=== PATIENT | female | born 1960 | race Caucasian/White ===

== ENCOUNTER 2019-02-03 17:23 | Observation (INO) ==
[2019-02-03] MEDS ORDERED: MORPHINE 4 MG/1 ML VIAL IV STA ×2 (18:24→20:18)
[2019-02-03] MEDS ORDERED: NITROGLYCERIN SL 0.4 MG TABLET SL PRN (18:24)
[2019-02-03] MEDS ORDERED: ONDANSETRON 4 MG/2 ML VIAL IV STA (18:24)
[2019-02-03] MEDS ORDERED: ASPIRIN 325 MG TABLET PO STA (18:24)
[2019-02-03 19:12] LABS: Basophils # 0.1 10*3/uL (0.0-0.2); Basophils % 0.5 % (0.0-0.8); Eosinophils # 0.1 10*3/uL (0.0-0.87); Eosinophils % 1.3 % (0.00-10.9); Hematocrit 42.8 VOL% (35.7-47.0); Hemoglobin 14.1 GM/DL (12.0-16.0); Immature Granulocytes % 0.5 %; Immature Granulocytes Absolute 0.05 #; Lymphocytes # 1.9 10*3/uL (1.4-4.0); Lymphocytes % 20.4 % (21.3-54.2); Mean Corpuscular HGB Conc 32.9 GM/DL (32-36); Mean Corpuscular Volume 89.4 FL (87-102); Mean Platelet Volume 10.8 FL (9.6-12.0); Monocytes % 4.9 % (1.7-12.7); Neutrophils % 72.4 % (38.7-73.9); Platelet Count 215 T/CUMM (130-400); Red Blood Count 4.79 MC/CUMM (3.8-5.5); Red Cell Distribution Width 13.9 % (9.3-17.3); White Blood Count 9.5 T/CUMM (4-12)
[2019-02-03 19:21] LABS: PT Patient Result 10.5 SECS
[2019-02-03 19:33] LABS: Alanine Aminotransferase 21 U/L (13-56); Albumin 3.9 G/DL (3.4-5.0); Alkaline Phosphatase 100 U/L (45-117); Aspartate Amino Transferase 15 U/L (0-37); Bilirubin,Total < 0.39 MG/DL (0.2-1.0); Blood Urea Nitrogen 5 MG/DL (7-18); Glucose 94 MG/DL (74-106); Osmolality,Calculated 271.7 MOS/KG (273-304); Total Protein 7.5 G/DL (6.4-8.3)
[2019-02-03] MEDS ORDERED: DOCUSATE SODIUM 100 MG CAPSULE PO PRN (21:12)
[2019-02-03] MEDS: ACETAMINOPHEN 325 MG TABLET PO PRN (22:55)
[2019-02-03] MEDS: MORPHINE ER 15 MG TABLET PO SCH (22:55)
[2019-02-03] MEDS: ZALEPLON 5 MG CAPSULE PO SCH (22:55)
[2019-02-03] MEDS: ROSUVASTATIN 20 MG TABLET PO SCH (22:55)
[2019-02-03] MEDS: TOPIRAMATE 25 MG TABLET PO SCH (22:56)
[2019-02-03] MEDS: SERTRALINE 100 MG TABLET PO SCH (22:56)
[2019-02-03] MEDS: ENOXAPARIN 40 MG/0.4 ML SYRINGE SUBCUT SCH (22:56)
[2019-02-03] MEDS: oxyCODONE/ACETAMINOPHEN 5-325 MG TABLET PO PRN (23:05)
[2019-02-03] MEDS: ONDANSETRON 4 MG/2 ML VIAL IV PRN (23:05)
[2019-02-03] MEDS: SUMAtriptan 25 MG TABLET PO PRN (23:50)
[2019-02-04 01:56] LABS: Basophils # 0.1 10*3/uL (0.0-0.2); Basophils % 0.6 % (0.0-0.8); Eosinophils # 0.2 10*3/uL (0.0-0.87); Eosinophils % 2.1 % (0.00-10.9); Hemoglobin 13.6 GM/DL (12.0-16.0); Immature Granulocytes % 0.4 %; Immature Granulocytes Absolute 0.03 #; Lymphocytes # 2.5 10*3/uL (1.4-4.0); Lymphocytes % 31.5 % (21.3-54.2); Mean Corpuscular HGB Conc 33.2 GM/DL (32-36); Mean Corpuscular Volume 88.9 FL (87-102); Mean Platelet Volume 11.2 FL (9.6-12.0); Monocytes % 4.9 % (1.7-12.7); Neutrophils % 60.5 % (38.7-73.9); Platelet Count 207 T/CUMM (130-400); Red Blood Count 4.61 MC/CUMM (3.8-5.5); Red Cell Distribution Width 13.9 % (9.3-17.3)
[2019-02-04 03:41] LABS: Calcium 8.9 MG/DL (8.5-10.1); Osmolality,Calculated 271.8 MOS/KG (273-304); Risk Ratio 7.82; Thyroid Stimulating Hormone 5.62 uIU/ml (0.358-3.74); VLDL CHOLESTEROL 62.6 MG/DL
[2019-02-04] MEDS: SUMAtriptan 25 MG TABLET PO PRN (04:20)
[2019-02-04] MEDS: ACETAMINOPHEN 325 MG TABLET PO PRN (04:20)
[2019-02-04] MEDS: oxyCODONE/ACETAMINOPHEN 5-325 MG TABLET PO PRN ×3 (04:20→19:33)
[2019-02-04] MEDS: SERTRALINE 100 MG TABLET PO SCH ×2 (09:11→20:55)
[2019-02-04] MEDS: LOSARTAN 50 MG TABLET PO SCH (09:11)
[2019-02-04] MEDS: BACLOFEN 10 MG TABLET PO SCH (09:11)
[2019-02-04] MEDS: PANTOPRAZOLE 40 MG TABLET PO SCH (09:11)
[2019-02-04] MEDS: FENOFIBRATE 145 MG TABLET PO SCH (09:12)
[2019-02-04] MEDS: TOPIRAMATE 25 MG TABLET PO SCH ×2 (09:16→20:55)
[2019-02-04] MEDS: busPIRone 15 MG TABLET PO SCH ×4 (09:17→21:04)
[2019-02-04] MEDS: ONDANSETRON 4 MG/2 ML VIAL IV PRN ×2 (12:22→19:32)
[2019-02-04] MEDS: MORPHINE ER 15 MG TABLET PO SCH (20:55)
[2019-02-04] MEDS: ROSUVASTATIN 20 MG TABLET PO SCH (20:55)
[2019-02-04] MEDS: ENOXAPARIN 40 MG/0.4 ML SYRINGE SUBCUT SCH (20:55)
[2019-02-04] MEDS: ZALEPLON 5 MG CAPSULE PO SCH (20:55)
[2019-02-05] MEDS: ONDANSETRON 4 MG/2 ML VIAL IV PRN ×4 (00:15→20:22)
[2019-02-05] MEDS ORDERED: REGADENOSON 0.4 MG/5 ML SYRINGE IV ONE (08:25)
[2019-02-05] MEDS: busPIRone 15 MG TABLET PO SCH ×4 (10:47→20:25)
[2019-02-05] MEDS: FENOFIBRATE 145 MG TABLET PO SCH (10:47)
[2019-02-05] MEDS: SERTRALINE 100 MG TABLET PO SCH ×2 (10:47→20:22)
[2019-02-05] MEDS: TOPIRAMATE 25 MG TABLET PO SCH ×2 (10:47→20:23)
[2019-02-05] MEDS: LOSARTAN 50 MG TABLET PO SCH (10:48)
[2019-02-05] MEDS: BACLOFEN 10 MG TABLET PO SCH (10:48)
[2019-02-05] MEDS: PANTOPRAZOLE 40 MG TABLET PO SCH (10:48)
[2019-02-05] MEDS: hydroCHLOROthiazide 12.5 MG CAPSULE PO SCH (10:48)
[2019-02-05] MEDS: oxyCODONE/ACETAMINOPHEN 5-325 MG TABLET PO PRN (17:52)
[2019-02-05] MEDS: ZALEPLON 5 MG CAPSULE PO SCH (20:22)
[2019-02-05] MEDS: MORPHINE ER 15 MG TABLET PO SCH (20:22)
[2019-02-05] MEDS: ENOXAPARIN 40 MG/0.4 ML SYRINGE SUBCUT SCH (20:22)
[2019-02-05] MEDS: ROSUVASTATIN 20 MG TABLET PO SCH (20:23)
[2019-02-06] MEDS: ONDANSETRON 4 MG/2 ML VIAL IV PRN ×4 (00:05→19:33)
[2019-02-06] MEDS: busPIRone 15 MG TABLET PO SCH ×4 (09:37→21:26)
[2019-02-06] MEDS ORDERED: PROMETHAZINE 25 MG/1 ML VIAL IM PRN (11:01)
[2019-02-06] MEDS: TOPIRAMATE 25 MG TABLET PO SCH ×2 (12:58→21:26)
[2019-02-06] MEDS: FENOFIBRATE 145 MG TABLET PO SCH (12:58)
[2019-02-06] MEDS: amLODIPine 5 MG TABLET PO SCH (12:58)
[2019-02-06] MEDS: LOSARTAN 50 MG TABLET PO SCH (12:59)
[2019-02-06] MEDS: SERTRALINE 100 MG TABLET PO SCH ×2 (12:59→21:30)
[2019-02-06] MEDS: PANTOPRAZOLE 40 MG TABLET PO SCH (12:59)
[2019-02-06] MEDS: BACLOFEN 10 MG TABLET PO SCH (12:59)
[2019-02-06] MEDS: ROSUVASTATIN 20 MG TABLET PO SCH (21:26)
[2019-02-06] MEDS: MORPHINE ER 15 MG TABLET PO SCH (21:26)
[2019-02-06] MEDS: ZALEPLON 5 MG CAPSULE PO SCH (21:26)
[2019-02-06] MEDS: PREGABALIN 100 MG CAPSULE PO SCH (22:53)
[2019-02-07] MEDS: ONDANSETRON 4 MG/2 ML VIAL IV PRN ×2 (04:25→08:14)
[2019-02-07 05:59] LABS: Basophils % 0.3 % (0.0-0.8); Eosinophils # 0.2 10*3/uL (0.0-0.87); Eosinophils % 2.4 % (0.00-10.9); Hematocrit 36.3 VOL% (35.7-47.0); Hemoglobin 11.7 GM/DL (12.0-16.0); Immature Granulocytes % 0.5 %; Immature Granulocytes Absolute 0.03 #; Lymphocytes # 2.2 10*3/uL (1.4-4.0); Lymphocytes % 33.3 % (21.3-54.2); Mean Corpuscular HGB Conc 32.2 GM/DL (32-36); Mean Corpuscular Volume 91.7 FL (87-102); Monocytes % 6.7 % (1.7-12.7); Neutrophils % 56.8 % (38.7-73.9); Platelet Count 167 T/CUMM (130-400); Red Blood Count 3.96 MC/CUMM (3.8-5.5); White Blood Count 6.5 T/CUMM (4-12)
[2019-02-07 06:20] LABS: Calcium 8.5 MG/DL (8.5-10.1); Osmolality,Calculated 275.8 MOS/KG (273-304)
[2019-02-07] MEDS ORDERED: LACTATED RINGERS 500 ML IV SCH (08:00)
[2019-02-07] MEDS ORDERED: PHENYLEPHRINE 1 MG/10 ML SYRINGE IV ONE (09:30)
[2019-02-07] MEDS ORDERED: LIDOCAINE 100 MG/5 ML SYRINGE ONE (09:30)
[2019-02-07] MEDS ORDERED: PROPOFOL 200 MG/20 ML VIAL IV ONE (09:30)
[2019-02-07] MEDS ORDERED: fentaNYL 100 MCG/2 ML VIAL ONE (12:36)
[2019-02-07] MEDS: busPIRone 15 MG TABLET PO SCH ×2 (14:37→16:43)
[2019-02-07] MEDS: LOSARTAN 50 MG TABLET PO SCH (14:38)
[2019-02-07] MEDS: hydroCHLOROthiazide 12.5 MG CAPSULE PO SCH (14:38)
[2019-02-07] MEDS: BACLOFEN 10 MG TABLET PO SCH (14:38)
[2019-02-07] MEDS: PREGABALIN 100 MG CAPSULE PO SCH (14:39)
[2019-02-07] MEDS: PANTOPRAZOLE 40 MG TABLET PO SCH (14:39)
[2019-02-07] MEDS: TOPIRAMATE 25 MG TABLET PO SCH (14:39)
[2019-02-07] MEDS: SERTRALINE 100 MG TABLET PO SCH (14:39)
[2019-02-07] MEDS: FENOFIBRATE 145 MG TABLET PO SCH (14:39)
[2019-02-07] MEDS: amLODIPine 5 MG TABLET PO SCH (14:39)
[2019-02-07] MEDS ORDERED: NALOXONE 0.4 MG/ML VIAL IV PRN (18:00)
[2019-02-07 20:19] VITALS: BP 104/63
== END 2019-02-07 21:15 | disposition home or self-care (01) ==
LOC: N.EDINP 17:23 → N.ED 17:23 → SUATTDRO 21:12 → N.TELEN 21:44
PROVIDERS: ADMIT Hospitalist; ATTEND Internal Medicine